=== PATIENT | female | born 1980 ===

== ENCOUNTER 2019-05-22 08:00 | Inpatient (IN) | payer OTHER ==
[~2019-05-22] VITALS: Ht 154.9 cm; Wt 3.2 kg
[2019-05-22] MEDS ORDERED: PROPRANOLOL HCL10 MG PO (10:32)
[2019-05-22] MEDS ORDERED: SYNTHROID137 MCG PO (10:32)
[2019-05-30] MEDS ORDERED: OBSTETRIX DHA1 EACH PO (15:46)
[2019-05-30] MEDS ORDERED: SYNTHROID175 MCG PO (15:46)
== END 2019-06-01 15:37 | DRG 788 ==
LOC: O/R 08:00 → OB/GYN 05-29 08:00 → O/R 05-29 08:38 → OB/GYN 05-29 08:38
PROVIDERS: Obstetrics & Gynecology; ADMIT Obstetrics & Gynecology
PROC: 4A1HXCZ Monitoring of Products of Conception, Cardiac Rate, External Approach (ICD-10-PCS; 2019-05-29)
PROC: 4A033R1 Measurement of Arterial Saturation, Peripheral, Percutaneous Approach (ICD-10-PCS; 2019-05-29)
PROC: 10D00Z1 Extraction of Products of Conception, Low, Open Approach (ICD-10-PCS; principal; 2019-05-29 10:00)
DX: O82 Encounter for cesarean delivery without indication (principal); O34.211 Maternal care for low transverse scar from previous cesarean delivery; O33.8 Maternal care for disproportion of other origin; Z3A.39 39 weeks gestation of pregnancy; Z37.0 Single live birth; Z22.330 Carrier of Group B streptococcus